=== PATIENT | female | born 1970 | race Caucasian/White ===

== ENCOUNTER 2019-11-29 10:07 | Emergency (ER) | payer MEDICAID, SELFPAY ==
[~2019-11-29] VITALS: Ht 162.6 cm; Wt 98.0 kg
[2019-11-29 10:10] VITALS: Ht 162.6 cm; Wt 98.0 kg
[2019-11-29 11:43] VITALS: BP 126/78
== END 2019-11-29 11:43 | disposition home or self-care (01) ==
LOC: ED 10:07
DX: J02.9 Acute pharyngitis, unspecified (principal); H92.09 Otalgia, unspecified ear; E11.9 Type 2 diabetes mellitus without complications; Z20.828 Contact with and (suspected) exposure to other viral communicable diseases
CPT/HCPCS: U0003-CS